=== PATIENT | female | born 2000 | race Caucasian/White ===

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

== ENCOUNTER 2021-05-17 10:19 | Emergency (ER) | payer OTHER ==
[2021-05-17 10:29] VITALS: BP 142/93; PULSE 93; RESP 19; TEMP 98.2
--- NOTE | 2021-05-17 10:44 | ED ---
ENT HPI - General Chief complaint: ENT Stated complaint: Sore throat, body aches Time Seen by Provider: 05/17/21 10:30 Source: patient, RN notes reviewed Mode of arrival: ambulatory Limitations: no limitations - History of Present Illness Initial comments: This is a 20-year-old female presents emergency Department with chief complaint of sore throat. Patient states started yesterday notice a large amount redness, painful swallowing or difficulty swallowing no prior tonsillectomy and adenoidectomy . Patient reports fevers and chills no abdominal complaints has nausea vomiting cough, runny nose, ear pain. Patient has no history of mono - Related Data Previous Rx's Medication Instructions Recorded Cephalexin [Keflex] 500 mg PO Q12HR #20 cap 07/22/ Amoxicillin 500 mg PO Q8H #30 cap 05/17/21 Allergies Allergy/AdvReac Type Severity Reaction Status Date / Time No Known Allergies Allergy Verified 05/17/21 10:29 Review of Systems ROS Statement: Those systems with pertinent positive or pertinent negative responses have been documented in the HPI. ROS Other: All systems not noted in ROS Statement are negative. Past Medical History Past Medical History: No Reported History History of Any Multi-Drug Resistant Organisms: None Reported Past Surgical History: No Surgical Hx Reported Past Psychological History: No Psychological Hx Reported Smoking Status: Vaper Past Alcohol Use History: Occasional Past Drug Use History: Marijuana General Exam Limitations: no limitations General appearance: alert, in no apparent distress Head exam: Present: atraumatic, normocephalic, normal inspection Eye exam: Present: normal appearance, PERRL, EOMI. Absent: scleral icterus, conjunctival injection, periorbital swelling ENT exam: Present: mucous membranes moist, TM's normal bilaterally, normal external ear exam. Absent: normal oropharynx (Erythema, swelling noted p osterior pharynx) Neck exam: Present: normal inspection, full ROM, lymphadenopathy. Absent: tenderness, meningismus Respiratory exam: Present: normal lung sounds bilaterally. Absent: respiratory distress, wheezes, rales, rhonchi, stridor Cardiovascular Exam: Present: regular rate, normal rhythm, normal heart sounds. Absent: systolic murmur, diastolic murmur, rubs, gallop, clicks Course Vital Signs 05/17/21 10:27 Temperature 98.2 F Pulse Rate 93 Respiratory 19 Rate Blood Pressure 142/93 O2 Sat by Pulse 99 Oximetry Medical Decision Making - Medical Decision Making Patient was treated for strep pharyngitis. Patient be discharged on amoxicillin return parameters discussed. Disposition Clinical Impression: Strep pharyngitis Disposition: TRANSFER TO PSYCH HOSP/UNIT Condition: Stable Instructions (If sedation given, give patient instructions): Strep Throat (ED) Additional Instructions: Please return to the Emergency Department if symptoms worsen or any other concerns. Prescriptions: Amoxicillin 500 mg PO Q8H #30 cap Is patient prescribed a controlled substance at d/c from ED?: No Referrals: Lucien Dhillon MD [Primary Care Provider] - 1-2 days Time of Disposition: 10:44
== END 2021-05-17 11:20 ==
LOC: EC 10:19
DX: J02.0 Streptococcal pharyngitis (principal); F17.290 Nicotine dependence, other tobacco product, uncomplicated
CPT/HCPCS: 99284

== ENCOUNTER 2021-07-24 07:20 | Emergency (ER) | payer OTHER ==
[2021-07-24 07:26] VITALS: RESP 18
[2021-07-24] MEDS ORDERED: IBUPROFEN 600 MG TAB PO STA (07:28)
[2021-07-24] MEDS ORDERED: ACETAMINOPHEN TAB 500 MG TAB PO STA (07:28)
--- NOTE | 2021-07-24 08:13 | XR ---
EXAMINATION TYPE: XR chest 2V DATE OF EXAM: 07/24/2021 COMPARISON: NONE HISTORY: Chest pain TECHNIQUE: Frontal and lateral views of the chest are obtained. FINDINGS: There is no focal air space opacity. No evidence for pneumothorax. No pleural effusion. The cardiac silhouette size is within normal limits. The osseous structures are grossly intact. IMPRESSION: 1. No acute cardiopulmonary process.
--- NOTE | 2021-07-24 08:25 | ED ---
General Adult HPI - General Chief complaint: Upper Respiratory Infection Stated complaint: vomiting, light sensitivity Time Seen by Provider: 07/24/21 07:28 Source: patient, RN notes reviewed Mode of arrival: ambulatory Limitations: no limitations - History of Present Illness Initial comments: 21-year-old female presents to the emergency room for a chief complaint of not feeling well. Patient states he woke up this morning and had body aches. States they're all over. States she has a cough as well as congestion. Feels congestion in her throat as well. Patient also had chills and a headache. States she feels sensitive to light. She did not take anything for this prior to arrival.Patient has no other complaints at this time including shortness of breath, chest pain, abdominal pain, nausea or vomiting, headache, or visual changes. - Related Data Home Medications Medication Instructions Recorded Confirmed No Known Home Medications 07/24/21 07/24/21 Allergies Allergy/AdvReac Type Severity Reaction Status Date / Time No Known Allergies Allergy Verified 07/24/21 08:12 Review of Systems ROS Statement: Those systems with pertinent positive or pertinent negative responses have been documented in the HPI. ROS Other: All systems not noted in ROS Statement are negative. Past Medical History Past Medical History: No Reported History History of Any Multi-Drug Resistant Organisms: None Reported Past Surgical History: No Surgical Hx Reported Past Psychological History: No Psychological Hx Reported Smoking Status: Vaper Past Alcohol Use History: Occasional Past Drug Use History: Marijuana General Exam Limitations: no limitations General appearance: alert, in no apparent distress Head exam: Present: atraumatic Eye exam: Present: normal appearance, PERRL, EOMI. Absent: scleral icterus, conjunctival injection ENT exam: Present: normal exam, mucous membranes moist Neck exam: Present: normal inspection, full ROM. Absent: tenderness Respiratory exam: Present: normal lung sounds bilaterally. Absent: respiratory distress, wheezes Cardiovascular Exam: Present: regular rate, normal rhythm, normal heart sounds GI/Abdominal exam: Present: soft, normal bowel sounds. Absent: distended, tenderness Neurological exam: Present: alert Course Vital Signs 07/24/21 07/24/21 07/24/21 07:21 08:13 08:45 Temperature 98.0 F 98.9 F Pulse Rate 121 H 96 Respiratory 18 18 18 Rate Blood Pressure 116/78 116/75 O2 Sat by Pulse 98 100 Oximetry Medical Decision Making - Medical Decision Making vitals are stable. Patient slightly tachycardic, given Motrin and Tylenol. No respiratory distress. Patient well-appearing. COVID-19 was detected. Patient does vape so I did offer antibody infusion however she declines at this time. She will return here for any worsening symptoms. - Lab Data Lab Results 07/24/21 Range/Units 07:47 Coronavirus (PCR) Detected A (Not Detectd) Disposition Clinical Impression: COVID-19 Disposition: HOME SELF-CARE Condition: Good Additional Instructions: Please take Motrin and Tylenol for body aches and fevers. You can alternate these every 3 hours. Drink plenty of fluids. Follow-up with your doctor. Return to the emergency room for any worsening symptoms. Must quarantine for 10 days. On day 11 as long as symptoms are improving and you're no longer having fevers for 24 hours you can discontinue quarantine. Is patient prescribed a controlled substance at d/c from ED?: No Referrals: Lucien Dhillon MD [Primary Care Provider] - 1-2 days Time of Disposition: 08:45
[2021-07-24 08:46] VITALS: BP 116/75; PULSE 96; TEMP 98.9
== END 2021-07-24 08:53 | disposition home or self-care (01) ==
LOC: EC 07:20
DX: U07.1 COVID-19 (principal); F17.290 Nicotine dependence, other tobacco product, uncomplicated
CPT/HCPCS: 71046; 87635; 99284

== ENCOUNTER → 2023-06-27 | Outpatient (CLI) | payer OTHER ==
--- NOTE | 2023-06-27 09:09 | US ---
EXAMINATION TYPE: Transabdominal DATE OF EXAM: 06/27/2023 8:52 AM COMPARISON: NONE CLINICAL INDICATION: Female, 23 years old with history of Z36 SCREENING FOR CHROMOSOMAL ANO Z34.91; HcG quadrupled EXAM PERFORMED: Transvaginal (TV) and Transabdominal (TA) EXAM MEASUREMENTS: GESTATIONAL AGE / DATING Physician Established: Not yet established Dates by LMP: (8 weeks/0 days) EDC: 02/06/2024 Dates by First Scan: No previous this is first scan Dates by Current Scan for: (5 weeks/4 days) MATERNAL ANATOMY Uterus: 8.9x4.3x7.1 Right Ovary: 4.4x1.6x2.9 Left Ovary: 2.9x1.4x2.3 Post CDS / Adnexa: obscured by bowel Presence of free fluid: yes, post cul-de-sac Presence of corpus luteal cyst: no Presence of subchorionic bleed: no GESTATION / SURVEY CRL: (6 weeks/1 days) (possible CRL) MSD: 0.9 (5 weeks/4 days) Yolk Sac (normal less than 6mm): unable to assess Heart Rate: no HR detected Rhythm: no HR detected IUP: No cardiac activity noted on today's scan. Question demise. Date of LMP: 05/02/2023 Beta HcG (if available): Not available at this time gestational sac does not correlate to LMP. No cardiac activity noted on today's exam. Possible CRL an d YS seen transvaginally. Question demise vs. blighted ovum, vs. other IMPRESSION: Gestational sac does not correlate to LMP. No cardiac activity noted on today's exam. Possible pole and yolk sac seen. Findings may relate to demise versus blighted oval versus early pregnan cy. Follow-up ultrasound in 7-10 days and serial beta-hCG is recommended.
== END | disposition home or self-care (01) ==
LOC: RADUSWWP 08:00
PROVIDERS: ATTEND Family Medicine
DX: Z34.91 Encounter for supervision of normal pregnancy, unspecified, first trimester (principal); Z36.0 Encounter for antenatal screening for chromosomal anomalies; Z3A.00 Weeks of gestation of pregnancy not specified
CPT/HCPCS: 76801; 76817

== ENCOUNTER 2024-09-06 08:10 | Emergency (ER) | payer OTHER ==
[2024-09-06 08:37] VITALS: TEMP 97.4
--- NOTE | 2024-09-06 08:45 | ED ---
Weakness HPI - General Chief complaint: Weakness Stated complaint: Fever/Dizziness Time Seen by Provider: 09/06/24 08:43 Source: patient, RN notes reviewed Mode of arrival: ambulatory Limitations: no limitations - History of Present Illness Initial comments: Patient is a 24-year-old female presented to the ER for evaluation of cough, congestion and weakness. Patient states for the past week and a half she has felt ill. She endorses cough, congestion, myalgias and chills. She has not taken her temperature. She also reports frequent diaphoresis and finds herself waking up in the middle the night soaking wet. Patient has taken [id number] Advil, DayQuil and NyQuil without relief. The patient states she took at home COVID and flu test which were negative. Patient was seen by PCP and started on prednisone. Patient also reports a miscarriage on 08-24-2024. She denies any abdominal pain, constipation/diarrhea, urinary complaints, vaginal bleeding or discharge, chest pain, shortness of breath or other complaints. - Related Data Home Medications Medication Instructions Recorded Confirmed No Known Home Medications 07/24/21 07/24/21 Allergies Allergy/AdvReac Type Severity Reaction Status Date / Time No Known Allergies Allergy Verified 09/06/24 08:36 Review of Systems ROS Statement: Those systems with pertinent positive or pertinent negative responses have been documented in the HPI. ROS Other: All systems not noted in ROS Statement are negative. Past Medical History Past Medical History: No Reported History Additional Past Medical History / Comment(s): miscarriage 08/24/24 History of Any Multi-Drug Resistant Organisms: None Reported Past Surgical History: No Surgical Hx Reported Past Psychological History: No Psychological Hx Reported Smoking Status: Vaper Past Alcohol Use History: Occasional Past Drug Use History: Marijuana General Exam - General Exam Comments Initial Comments: Visual Physical Exam Vital signs reviewed General: Well-appearing, nontoxic, no acute distress. Head: Normocephalic, atraumatic Eyes: PERRLA, EOMI ENT: Airway patent Chest: Nonlabored breathing Skin: No visual rash, normal skin tone Neuro: Alert and oriented 3 Musculoskeletal: No gross abnormalities Limitations: no limitations General appearance: alert, in no apparent distress ENT exam: Present: normal exam, normal oropharynx, mucous membranes moist, TM's normal bilaterally Respiratory exam: Present: normal lung sounds bilaterally. Absent: respiratory distress, wheezes, rales, rhonchi, stridor Cardiovascular Exam: Present: regular rate, normal rhythm, normal heart sounds. Absent: systolic murmur, diastolic murmur, rubs, gallop, clicks GI/Abdominal exam: Present: soft, normal bowel sounds. Absent: distended, tenderness, guarding, rebound, rigid Neurological exam: Present: alert, oriented X3, CN II-XII intact Skin exam: Present: warm, intact, normal color, diaphoretic (Mild) Course Vital Signs 09/06/24 09/06/24 08:33 10:51 Temperature 97.4 F L Pulse Rate 89 74 Respiratory 22 18 Rate Blood Pressure 143/93 122/74 O2 Sat by Pulse 100 99 Oximetry Medical Decision Making - Medical Decision Making I performed the quick note portion of this chart. Electronically signed by Trevor Lopez PA-C Was pt. sent in by a medical professional or institution ([facility], ELECTRONIC MUSICAL INSTRUMENT REPAIRER, urgent care, hospital, or residential...) When possible be specific @ -No Did you speak to anyone other than the patient for history (EMS, parent, family, police, friend...)? What history was obtained from this source @ -No Did you review nursing and triage notes (agree or disagree)? Why? @ -I reviewed and agree with nursing and triage notes Were old charts reviewed (outside hosp., previous admission, EMS record, old EKG, old radiological studies, urgent care reports/EKG's, residential records)? Report findings @ -No old charts were reviewed Differential Diagnosis (chest pain, altered mental status, abdominal pain women, abdominal pain men, vaginal bleeding, weakness, fever, dyspnea, syncope, headache, dizziness, GI bleed, back pain, seizure, CVA, palpatations, mental health, musculoskeletal)? @ -Differential Weakness:Hypoglycemia, shock, sepsis, hyponatremia, anemia, infection, OH, ETOH, adverse medicine reaction, overdose, stroke, this is not meant to be an all-inclusive list. EKG interpreted by me (3pts min.). @ -None done X-rays interpreted by me (1pt min.). @ -CXR interpreted by me negative for focal consolidations. CT interpreted by me (1pt min.). @ -None done U/S interpreted by me (1pt. min.). @ -None done What testing was considered but not performed or refused? (CT, X-rays, U/S, labs)? Why? @ -None What meds were considered but not given or refused? Why? @ -Tamiflu considered but not prescribed as patient's symptom onset greater than 48 hours. Did you discuss the management of the patient with other professionals (professionals i.e. , PA, ELECTRONIC MUSICAL INSTRUMENT REPAIRER, lab, RT, psych nurse, social science analyst, environmental conservation officer, teacher, planned giving officer, rifle case repairer)? Give summary @ -No Was smoking cessation discussed for >3mins.? @ -No Was critical care preformed (if so, how long)? @ -No Were there social determinants of health that impacted care today? How? (Homelessness, low income, unemployed, alcoholism, drug addiction, transportation, low edu. Level, literacy, decrease access to med. care, fpc, rehab)? @ -No Was there de-escalation of care discussed even if they declined (Discuss DNR or withdrawal of care, Hospice)? DNR status @ -No What co-morbidities impacted this encounter? (DM, HTN, Smoking, COPD, CAD, Cancer, CVA, ARF, Chemo, Hep., AIDS, mental health diagnosis, sleep apnea, morbid obesity)? @ -None Was patient admitted / discharged? Hospital course, mention meds given and route, prescriptions, significant lab abnormalities, going to OR and other pertinent info. @ -Discharge. 24-year-old female presented the ER for evaluation of cough, congestion and weakness. Patient originally seen as a quick note where laboratory studies were ordered. Upon rooming, history and physical exam completed. Vitals within normal limits. Patient in no signs of acute distress but is mildly diaphoretic. CBC and CMP unremarkable. Influenza A positive. CXR negative. Patient received p.o. acetaminophen for symptom control in the ER. Patient refused IV fluids. Upon reevaluation, patient is stable for discharge and outpatient follow-up. As symptom onset is greater than 48 hours, Tamiflu not prescribed. Patient is agreeable to this. Strict return parameters discussed. Patient discharged in stable condition with follow-up to PCP. Patient verbally expressed understanding and agreement with care plan. Case discussed with ED attending, Dr. Castellon. Undiagnosed new problem with uncertain prognosis? @ -No Drug Therapy requiring intensive monitoring for toxicity (Heparin, Nitro, Insulin, Cardizem)? @ -No Were any procedures done? @ -No Diagnosis/symptom? @ -Influenza A/acute viral sinusitis Acute, or Chronic, or Acute on Chronic? @ -Acute Uncomplicated (without systemic symptoms) or Complicated (systemic symptoms)? @ -Uncomplicated Side effects of treatment? @ -No Exacerbation, Progression, or Severe Exacerbation? @ -No Poses a threat to life or bodily function? How? (Chest pain, USA, OH, pneumonia, PE, COPD, DKA, ARF, appy, cholecystitis, CVA, Diverticulitis, Homicidal, Suicidal, threat to staff... and all critical care pts) @ -No - Lab Data Result diagrams: 09/06/24 09:43 09/06/24 09:43 Lab Results 09/06/24 09/06/24 09/06/24 Range/Units 09:43 09:43 09:43 WBC 6.2 (3.8-10.6) k/uL RBC 4.50 (3.80-5.40) m/uL Hgb 13.8 (11.4-16.0) gm/dL Hct 40.5 (34.0-46.0) % MCV 90.0 (80.0-100.0) fL MCH 30.6 (25.0-35.0) pg MCHC 34.0 (31.0-37.0) g/dL RDW 12.4 (11.5-15.5) % Plt Count 244 (150-450) k/uL MPV 7.2 Neutrophils % 65 % Lymphocytes % 22 % Monocytes % 9 % Eosinophils % 1 % Basophils % 1 % Neutrophils # 4.0 (1.3-7.7) k/uL Lymphocytes # 1.4 (1.0-4.8) k/uL Monocytes # 0.6 (0-1.0) k/uL Eosinophils # 0.0 (0-0.7) k/uL Basophils # 0.0 (0-0.2) k/uL Sodium 136 L (137-145) mmol/L Potassium 4.2 (3.5-5.1) mmol/L Chloride 100 (98-107) mmol/L Carbon Dioxide 22 (22-30) mmol/L Anion Gap 14 mmol/L BUN 12 (7-17) mg/dL Creatinine 0.71 (0.52-1.04) mg/dL Est GFR (CKD-EPI)AfAm >90 (>60 ml/min/1.73 sqM) Est GFR (CKD-EPI)NonAf >90 (>60 ml/min/1.73 sqM) Glucose 89 (74-99) mg/dL Plasma Lactic Acid Jack 1.3 (0.7-2.0) mmol/L Calcium 9.6 (8.4-10.2) mg/dL Total Bilirubin 0.5 (0.2-1.3) mg/dL AST 21 (14-36) U/L ALT 12 (4-34) U/L Alkaline Phosphatase 89 (38-126) U/L Total Protein 7.6 (6.3-8.2) g/dL Albumin 4.8 (3.5-5.0) g/dL Influenza Type A (PCR) (Not Detectd) Influenza Type B (PCR) (Not Detectd) RSV (PCR) (Not Detectd) SARS-CoV-2 (PCR) (Not Detectd) 09/06/24 Range/Units 09:43 WBC (3.8-10.6) k/uL RBC (3.80-5.40) m/uL Hgb (11.4-16.0) gm/dL Hct (34.0-46.0) % MCV (80.0-100.0) fL MCH (25.0-35.0) pg MCHC (31.0-37.0) g/dL RDW (11.5-15.5) % Plt Count (150-450) k/uL MPV Neutrophils % % Lymphocytes % % Monocytes % % Eosinophils % % Basophils % % Neutrophils # (1.3-7.7) k/uL Lymphocytes # (1.0-4.8) k/uL Monocytes # (0-1.0) k/uL Eosinophils # (0-0.7) k/uL Basophils # (0-0.2) k/uL Sodium (137-145) mmol/L Potassium (3.5-5.1) mmol/L Chloride (98-107) mmol/L Carbon Dioxide (22-30) mmol/L Anion Gap mmol/L BUN (7-17) mg/dL Creatinine (0.52-1.04) mg/dL Est GFR (CKD-EPI)AfAm (>60 ml/min/1.73 sqM) Est GFR (CKD-EPI)NonAf (>60 ml/min/1.73 sqM) Glucose (74-99) mg/dL Plasma Lactic Acid Jack (0.7-2.0) mmol/L Calcium (8.4-10.2) mg/dL Total Bilirubin (0.2-1.3) mg/dL AST (14-36) U/L ALT (4-34) U/L Alkaline Phosphatase (38-126) U/L Total Protein (6.3-8.2) g/dL Albumin (3.5-5.0) g/dL Influenza Type A (PCR) Detected A (Not Detectd) Influenza Type B (PCR) Not Detected (Not Detectd) RSV (PCR) Not Detected (Not Detectd) SARS-CoV-2 (PCR) Not Detected (Not Detectd) - Radiology Data Radiology results: report reviewed, image reviewed Disposition Clinical Impression: Influenza A, Acute viral sinusitis Disposition: HOME SELF-CARE Condition: Stable Instructions (If sedation given, give patient instructions): Influenza (DC) Additional Instructions: Continue taking [id number] ibuprofen and Tylenol for fever and symptom control. Follow-up with PCP. Return to the ER for any new or worsening concerns. Is patient prescribed a controlled substance at d/c from ED?: No Referrals: Kathy Galloway MD [Primary Care Provider] - 1-2 days Time of Disposition: 10:35
--- NOTE | 2024-09-06 09:10 | XR ---
EXAMINATION TYPE: XR chest 2V DATE OF EXAM: 09/06/2024 9:04 AM COMPARISON: Chest x-ray July 24, 2021 CLINICAL INDICATION: Female, 24 years old with history of cough, TECHNIQUE: Frontal and lateral views of the chest are obtained. FINDINGS: There is no suspicious new focal air space opacity, pleural effusion, or pneumothorax seen . The cardiac silhouette size is stable and within normal limits. The osseous structures are intac t. IMPRESSION: No acute pulmonary infiltrate. No significant change from prior. [facility], , 09/06/2024 9:07 AM
[2024-09-06 09:52] LABS: Basophils % (A) 1 %; Eosinophils % (A) 1 %; HCT 40.5 % (34.0-46.0); HGB 13.8 gm/dL (11.4-16.0); Lymphocytes # (A) 1.4 k/uL (1.0-4.8); Lymphocytes % (A) 22 %; MCH 30.6 pg (25.0-35.0); Mean Platelet Volume 7.2; Monocytes # (A) 0.6 k/uL (0-1.0); Monocytes % (A) 9 %; Neutrophils % (A) 65 %; Platelet Count 244 k/uL (150-450); RDW 12.4 % (11.5-15.5); WBC 6.2 k/uL (3.8-10.6)
[2024-09-06 10:01] LABS: ALT 12 U/L (4-34); AST 21 U/L (14-36); African American GFR (CKD) >90 (>60 ml/min/1.73 sqM); Albumin 4.8 g/dL (3.5-5.0); Alkaline Phosphatase 89 U/L (38-126); Anion Gap 14 mmol/L; Blood Urea Nitrogen 12 mg/dL (7-17); Calcium 9.6 mg/dL (8.4-10.2); Carbon Dioxide 22 mmol/L (22-30); Chloride 100 mmol/L (98-107); Glucose 89 mg/dL (74-99); Non-African American GFR(CKD) >90 (>60 ml/min/1.73 sqM); Potassium 4.2 mmol/L (3.5-5.1); Sodium 136 mmol/L (137-145); Total Bilirubin 0.5 mg/dL (0.2-1.3); Total Protein 7.6 g/dL (6.3-8.2)
[2024-09-06] MEDS ORDERED: SODIUM CHLORIDE 0.9% 1,000 ML IV STA (10:14)
[2024-09-06] MEDS: ACETAMINOPHEN TAB 325 MG TAB PO STA (10:43)
[2024-09-06 10:52] VITALS: BP 122/74; PULSE 74; RESP 18
== END 2024-09-06 10:52 | disposition home or self-care (01) ==
LOC: EC 08:10
DX: J10.1 Influenza due to other identified influenza virus with other respiratory manifestations (principal); J01.90 Acute sinusitis, unspecified; B97.89 Other viral agents as the cause of diseases classified elsewhere; F17.290 Nicotine dependence, other tobacco product, uncomplicated
CPT/HCPCS: 36415; 71046; 80053; 83605; 85025; 87636; 99285

== ENCOUNTER → 2024-10-22 | Outpatient (CLI) | payer OTHER ==
--- NOTE | 2024-10-22 15:21 | US ---
EXAMINATION TYPE: Transabdominal DATE OF EXAM: 10/22/2024 2:50 PM COMPARISON: NONE CLINICAL INDICATION: Female, 24 years old with history of Z87.59 PERSONAL HISTORY OF COMP OF PREG; Pt is unsure of exact period, pt thinks to have "last normal menstrual cycle on 07/22/2024, no prior im aging with this US, hx of prior miscarriages TECHNIQUE: Transvaginal (TV) and Transabdominal (TA) with grayscale and color Doppler imaging includi ng first trimester . FINDINGS: EXAM MEASUREMENTS: GESTATIONAL AGE / DATING Dates by LMP: 07/22/2024 (13 weeks/1 days) EDC: 04/28/2025 Dates by First Scan: No previous this is first scan Dates by Current Scan for: (08 weeks/0 days) EDC: 06/03/2025 MATERNAL ANATOMY Uterus: 8.8x6.2x7.0cm Right Ovary: 4.2x2.3x4.6cm Left Ovary: 3.0x3.3x2.8cm Post CDS / Adnexa: Small amount of FF seen adj to Lt Ovary Presence of free fluid: small amount of FF seen adj to Lt Ovary Presence of corpus luteal cyst: ? within Lt O: 1.4x2.0x1.7cm Presence of subchorionic bleed: ?Hypoechoic area seen: 1.3x0.3x1.1cm GESTATION / SURVEY CRL: 15.2 (8 weeks/0 days) Gestational Sac morphology: Normal Gestational Sac MSD: 2.6 (7 weeks/6 days) Yolk Sac (normal less than 6mm): 0.3 Cardiac Activity/Heart Rate: 163 bpm Rhythm: Normal IUP: Viable IUP Date of LMP: 07/22/2024 Beta HcG (if available): Not available at this time IMPRESSION: 1. Single live intrauterine with calculated ultrasound age of 8 weeks 0 days with estimate d due date of 06/03/2025. 2. Trace subchorionic hemorrhage. Close clinical surveillance is recommended. [facility], , 10/22/2024 3:18 PM
== END | disposition home or self-care (01) ==
LOC: RADUSWWP 13:56
PROVIDERS: ATTEND Family Medicine
DX: O20.8 Other hemorrhage in early pregnancy (principal); Z87.59 Personal history of other complications of pregnancy, childbirth and the puerperium; Z3A.08 8 weeks gestation of pregnancy
CPT/HCPCS: 76801; 76817

== ENCOUNTER → 2024-11-12 | Outpatient (CLI) | payer OTHER ==
--- NOTE | 2024-11-12 16:28 | US ---
EXAMINATION TYPE: Transabdominal DATE OF EXAM: 11/12/2024 4:06 PM COMPARISON: 10/22/2024 CLINICAL INDICATION: Female, 24 years old with history of O46.8X1 OTHER ANTEPARTUM HEMORRHAGE, FIRST TRIMEST; Subchorionic hemorrhage on previous exam, patient denies any bleeding or cramping. TECHNIQUE: Transabdominal (TA) with grayscale and color Doppler imaging including first trimester pre gnancy. FINDINGS: EXAM MEASUREMENTS: GESTATIONAL AGE / DATING Physician Established: (11 weeks/0 days) EDC: 06/03/2025 Dates by LMP: ( weeks/ days) EDC: Dates by First Scan: (11 weeks/0 days) EDC: Dates by Current Scan for: (11 weeks/4 days) EDC: 05/30/2025 MATERNAL ANATOMY Uterus: 9.7 x 7.9 x 8.2 cm Right Ovary: 4.1 x 2.5 x 2.1 cm Left Ovary: 3.5 x 2.2 x 2.3 cm Post CDS / Adnexa: WNL Presence of free fluid: No Presence of corpus luteal cyst: No Presence of subchorionic bleed: Yes GESTATION / SURVEY CRL: 4.76 (11 weeks/4 days) Gestational Sac morphology: WNL Gestational Sac MSD: NA ( weeks/ days) Yolk Sac (normal less than 6mm): 0.4 Cardiac Activity/Heart Rate: 173 bpm Rhythm: ? Elevated IUP: Viable IUP Nuchal Translucency 10-14wks (normal less than 3mm): Not able to obtain due to movement Age Appropriate Anatomy Cord Insertion: Visualized Limbs: Visualized Calvarium: Visualized Date of LMP: Beta HcG (if available): IMPRESSION: 1. Single live intrauterine with calculated ultrasound age of 11 weeks 4 days with an asya mated date of delivery of 05/30/2025. 2. Trace subchorionic hemorrhage redemonstrated. Close clinical surveillance is recommended. [facility], , 11/12/2024 4:25 PM
== END | disposition home or self-care (01) ==
LOC: RADUSWWP 15:46
PROVIDERS: ATTEND Family Medicine
DX: O46.8X1 Other antepartum hemorrhage, first trimester (principal); Z3A.11 11 weeks gestation of pregnancy
CPT/HCPCS: 76801